=== PATIENT | male | born 2000 | race Native Hawaiian/Other Pacific Islander ===

== ENCOUNTER 2020-09-02 10:11 | Emergency (ER) | payer SELFPAY ==
[~2020-09-02] VITALS: Ht 177.8 cm; Wt 65.9 kg
[2020-09-02 10:17] VITALS: BP 138/55
[2020-09-02] MEDS ORDERED: MYCO250C27 PO (10:17)
[2020-09-02] MEDS ORDERED: HYDR200T83 PO (10:17)
[2020-09-02] MEDS ORDERED: LIDOCAINE 2%/EPI 1:200,000/PF 20 ML VIAL SQ ONE (12:30)
== END 2020-09-02 13:15 | disposition home or self-care (01) ==
LOC: EMS 10:11
DX: S61.411A Laceration without foreign body of right hand, initial encounter (principal); W45.8XXA Other foreign body or object entering through skin, initial encounter; Y93.89 Activity, other specified; Y92.89 Other specified places as the place of occurrence of the external cause; Y99.8 Other external cause status
CPT/HCPCS: 99281; 99282; J2001; Z7502